=== PATIENT | female | born 1960 | race Caucasian/White ===

== ENCOUNTER 2021-07-18 13:49 | Outpatient (REF) | payer MEDICAID, SELFPAY ==
[2021-07-18 13:51] LABS: HCT 36.8 % (36.0-46.0); HGB 11.9 g/dL (11.2-15.7); MCH 29.5 pg (27.0-33.0); MCHC 32.3 % (32.0-36.0); MCV 91.3 fL (80-95); MPV 9.4 fL (8.0-11.0); Platelet Count 366 10^3/uL (130-400); RBC 4.03 10^6/uL (3.93-5.22); RDW 12.6 % (11.7-14.6); RDW-SD 42.3 fL; WBC 6.93 10^3/uL (4.4-10.8)
[2021-07-18 14:12] LABS: TSH 0.06 uIU/mL (0.36-3.74)
== END 2021-07-18 13:50 | disposition home or self-care (01) ==
LOC: NCHCN 13:49
PROVIDERS: Visit Provider Nurse Practitioner Family
DX: E03.9 Hypothyroidism, unspecified (principal)
CPT/HCPCS: 85027; 84443

== ENCOUNTER 2021-07-25 12:05 | Outpatient (REF) | payer MEDICAID, SELFPAY ==
[2021-07-25 20:14] LABS: TSH (W/Ref FT4) 0.07 uIU/mL (0.36-3.74)
== END 2021-07-25 12:06 | disposition home or self-care (01) ==
LOC: NCHCN 12:05
PROVIDERS: Visit Provider Nurse Practitioner Family
DX: E03.9 Hypothyroidism, unspecified (principal)
CPT/HCPCS: 84439; 84443

== ENCOUNTER 2021-09-08 12:50 | Outpatient (REF) | payer MEDICAID, SELFPAY ==
[2021-09-08 13:42] LABS: FREE T4 1.41 ng/dL (0.76-1.46); TSH 0.27 uIU/mL (0.36-3.74)
== END 2021-09-08 12:51 | disposition home or self-care (01) ==
LOC: NCHCN 12:50
PROVIDERS: PCP Nurse Practitioner Family; Visit Provider Nurse Practitioner Family
DX: E03.9 Hypothyroidism, unspecified (principal)
CPT/HCPCS: 84439; 84443

== ENCOUNTER 2022-01-15 15:24 | Outpatient (REF) | payer MEDICAID, SELFPAY ==
[2022-01-15 17:31] LABS: HCT 36.8 % (36.0-46.0); HGB 11.9 g/dL (11.2-15.7); MCH 30.1 pg (27.0-33.0); MCHC 32.3 % (32.0-36.0); MCV 93 fL (80-95); MPV 9.3 fL (8.0-11.0); Platelet Count 360 10^3/uL (130-400); RBC 3.95 10^6/uL (3.93-5.22); RDW 13.3 % (11.7-14.6); RDW-SD 45.4 fL; WBC 6.25 10^3/uL (4.4-10.8)
[2022-01-15 18:08] LABS: ALT 27 U/L (14-59); AST 22 U/L (15-37); Albumin 3.6 g/dL (3.4-5.0); Alkaline Phosphatase 75 U/L (46-116); BUN 18 mg/dL (7-18); Bilirubin, Total 0.8 mg/dL (0.2-1.0); CO2 31.5 mmol/L (21.0-32.0); CREATININE 0.7 mg/dL (0.55-1.02); Calcium 8.8 mg/dL (8.5-10.1); Calculated LDL 120 mg/dL (<100); Cholesterol 192 mg/dL (<200); Glucose 99 mg/dL (74-106); HDL Cholesterol 61 mg/dL (40-60); Total Protein 7.2 g/dL (6.4-8.2); Triglyceride 57 mg/dL (<150)
[2022-01-15 19:01] LABS: Anion Gap 5.5 mmol/L (3-11); Chloride 106 mmol/L (98-107); Ferritin 52 ng/mL (8-252); Potassium 4.3 mmol/L (3.5-5.1); Sodium 143 mmol/L (136-145)
[2022-01-15 19:11] LABS: Vitamin D 25 Total 49.5 ng/mL (30-100)
[2022-01-15 19:21] LABS: FREE T4 1.34 ng/dL (0.76-1.46)
[2022-01-17 13:02] LABS: HIV-1/2 Ag & Ab Screen Negative (Negative)
[2022-01-19 12:24] LABS: Hepatitis C Ab w Rflx HCV PCR Negative (Negative)
== END 2022-01-15 15:25 | disposition home or self-care (01) ==
LOC: NCHCN 15:24
PROVIDERS: PCP Nurse Practitioner Family; Visit Provider Nurse Practitioner Family
DX: E03.9 Hypothyroidism, unspecified (principal)
CPT/HCPCS: 80053; 80061; 82306; 85027; 86803; 87389; 82728; 84439

== ENCOUNTER → 2022-03-05 03:11 | Outpatient (CLI) | payer MEDICAID, SELFPAY ==
--- NOTE | 2022-03-05 | DI.MAMMO_ITS ---
Exam(s) MAMMO SCREENING EXAM: MAMMO SCREENING CLINICAL HISTORY: SCREENING FOR BREAST CANCER Z12.31. TECHNIQUE: Bilateral full field digital CC and MLO mammographic images were obtained with 3D tomosyn thesis and utilizing computer aided detection (CAD). COMPARISON: Prior outside mammogram of July 2019 was reviewed. FINDINGS: There has been no significant change in the appearance and distribution of the fibroglandular tissue. There are no new spiculated masses nor malignant appearing microcalcification groups. There is no significant architectural distortion nor skin thickening-retraction. IMPRESSION: No radiographic evidence of malignancy. BI-RADS Category 1 - Negative Breast Density - Category B - Scattered areas of fibroglandular density Breast density Category C or D implies that the patient has dense breast tissue. Dense breast tissue can make it harder to find cancer on a mammogram. Dense breast tissue is also associated with an incr eased risk of breast cancer. This information about the result of the mammogram report was provided to the patient to raise their awareness. Use this report when you speak with the patient about their risks for breast cancer, which includes their family history. At that time, you may recommend additional screening tests (Ultrasoun d or MRI) as these tests may add significant information. A negative radiographic report should not delay biopsy if a dominant or clinically suspicious mass is present. Up to ten percent of cancers are not identified on mammography. A negative report may reinforce clinical impression. Adenosis and dense breasts may obscure an underlying neoplasm. False positive reports average 6 to 10%. Patient will receive a letter notifying them of these results.
== END ==
PROVIDERS: PCP Nurse Practitioner Family; Visit Provider Nurse Practitioner Family
DX: Z12.31 Encounter for screening mammogram for malignant neoplasm of breast (principal)
CPT/HCPCS: 77063; 77067

== ENCOUNTER 2022-07-23 12:44 | Outpatient (REF) | payer MEDICAID, SELFPAY ==
[2022-07-23 15:59] LABS: FREE T4 1.34 ng/dL (0.76-1.46); TSH 14.17 uIU/mL (0.36-3.74)
== END 2022-07-23 12:45 | disposition home or self-care (01) ==
LOC: NCHCN 12:44
PROVIDERS: PCP Nurse Practitioner Family; Visit Provider Nurse Practitioner Family
DX: E03.9 Hypothyroidism, unspecified (principal)
CPT/HCPCS: 84439; 84443

== ENCOUNTER 2022-09-21 16:05 | Outpatient (REF) | payer MEDICAID, SELFPAY ==
[2022-09-21 20:00] LABS: TSH 10.97 uIU/mL (0.36-3.74)
== END 2022-09-21 16:06 | disposition home or self-care (01) ==
LOC: NCHCN 16:05
PROVIDERS: PCP Nurse Practitioner Family; Visit Provider Nurse Practitioner Family
DX: E03.9 Hypothyroidism, unspecified (principal)
CPT/HCPCS: 84443

== ENCOUNTER 2023-01-18 16:55 | Outpatient (REF) | payer MEDICAID, SELFPAY ==
[2023-01-18 17:19] LABS: Iron 82 ug/dL (50-170); Total Iron Binding Capacity 314 ug/dL (250-450); Transferrin Sat 26 % (15-50)
[2023-01-18 17:29] LABS: Abs Immature Grans 0.02 10^3/uL (0.0-0.06); Absolute Basophil Count 0.04 10^3/uL (0.0-0.2); Absolute Eosinophil Count 0.16 10^3/uL (0.0-0.7); Absolute Lymphocyte Count 2.01 10^3/uL (1.2-3.4); Absolute Monocyte Count 0.34 10^3/uL (0.1-0.8); Absolute Neutrophil Count 3.48 10^3/uL (1.2-6.7); Basophils % 0.7; Eosinophils % 2.6; HCT 35.4 % (36.0-46.0); HGB 11.7 g/dL (11.2-15.7); Immature Grans % 0.3; Lymphocytes % 33.2; MCH 30.3 pg (27.0-33.0); MCHC 33.1 % (32.0-36.0); MCV 92 fL (80-95); Monocytes % 5.6; Neutrophils % 57.6; Platelet Count 390 10^3/uL (130-400); RBC 3.86 10^6/uL (3.93-5.22); RDW 13.1 % (11.7-14.6); RDW-SD 43.7 fL; WBC 6.05 10^3/uL (4.4-10.8)
[2023-01-18 17:39] LABS: Vitamin D 25 Total 46.4 ng/mL (30-100)
[2023-01-18 17:42] LABS: ALT 16 U/L (14-59); AST 13 U/L (15-37); Albumin 3.5 g/dL (3.4-5.0); Alkaline Phosphatase 77 U/L (46-116); Anion Gap 7.3 mmol/L (3-11); BUN 11 mg/dL (7-18); Bilirubin, Total 0.8 mg/dL (0.2-1.0); CO2 29.7 mmol/L (21.0-32.0); CREATININE 0.7 mg/dL (0.55-1.02); Calcium 8.8 mg/dL (8.5-10.1); Calculated LDL 116 mg/dL (<100); Chloride 108 mmol/L (98-107); Cholesterol 184 mg/dL (<200); Estimated GFR 97.12 (mL/min/1.73m2); Ferritin 51 ng/mL (8-252); Glucose 94 mg/dL (74-106); HDL Cholesterol 55 mg/dL (40-60); Potassium 4.2 mmol/L (3.5-5.1); Sodium 145 mmol/L (136-145); TSH 4.65 uIU/mL (0.36-3.74); Total Protein 6.6 g/dL (6.4-8.2); Triglyceride 66 mg/dL (<150); Vitamin B12 216 pg/mL (193-986)
[2023-01-18 17:45] LABS: Folate > 20.0 ng/mL (8.6-20.0)
[2023-01-20 10:56] LABS: Alpha 1 Antitrypsin,Serum 115 mg/dL (90-200)
== END 2023-01-18 16:56 | disposition home or self-care (01) ==
LOC: NCHCN 16:55
PROVIDERS: PCP Nurse Practitioner Family; Visit Provider Nurse Practitioner Family
DX: E55.9 Vitamin D deficiency, unspecified (principal); E03.9 Hypothyroidism, unspecified; Z84.81 Family history of carrier of genetic disease
CPT/HCPCS: 80053; 80061; 82306; 82103; 82607; 82728; 82746; 83540; 83550; 83735; 84443; 85025

== ENCOUNTER 2023-03-16 18:59 | Outpatient (REF) | payer MEDICAID, SELFPAY ==
[2023-03-16 18:38] LABS: TSH 1.48 uIU/mL (0.36-3.74)
[2023-03-18 08:45] LABS: Alpha 1 Antitrypsin,Serum 110 mg/dL (90-200)
== END 2023-03-16 19:00 | disposition home or self-care (01) ==
LOC: NCHCN 18:59
PROVIDERS: PCP Nurse Practitioner Family; Visit Provider Nurse Practitioner Family
DX: E03.9 Hypothyroidism, unspecified (principal); Z84.81 Family history of carrier of genetic disease
CPT/HCPCS: 82103; 84443